=== PATIENT | female | born 1945 | race Asian ===

== ENCOUNTER 2016-12-11 20:50 | Inpatient (IN) | payer OTHER ==
[~2016-12-11] VITALS: Ht 175.3 cm; Wt 64.9 kg
[2016-12-11 20:50] VITALS: BP 173/105
--- NOTE | 2016-12-11 21:01 | NUR ---
BIBA TO ER BED 7
--- NOTE | 2016-12-11 21:07 | NUR ---
71/F BIBA DUE TO SOB SATS IN 80S PER ALS, ALBUTEROL, ATROVENT AND 2LPM NC GIVEN, IMPROVED TO 95% ON 2LPM NC. SON STATES PT WAS SEEN IN URGENT CARE 1 WEEK AGO FOR SORE THROAT, NO RX REPORTED. SOB STARTED 1 HOUR AGO. PT SATS 95% ON 2LPM, 125 SINUS TACH, BP 145/89. HOB ELEVATED, POSITIONED FOR COMFORT, ED MADE AWARE OF PT STATUS Addendum: 12/11/16 at 2114 by WEI HX HYPERTENSION
--- NOTE | 2016-12-11 21:22 | NUR ---
Patient being evaluated by physician at bedside.
[2016-12-11] MEDS ORDERED: NACL 0.9% 2,000 ML IV ONE (21:24)
[2016-12-11 21:58] LABS: BASOPHILS # (AUTO) 0.2 K/uL (0.00-0.22); BASOPHILS % (AUTO) 1.7 % (0.0-2.0); EOSINOPHILS % (AUTO) 0.2 % (0.0-4.0); HEMATOCRIT 40.8 % (36-48); HEMOGLOBIN 13.4 g/dL (12.0-16.0); LYMPHOCYTES # (AUTO) 0.4 K/uL (2.5-16.5); LYMPHOCYTES % (AUTO) 4.3 % (20.5-51.1); MEAN CORPUSCULAR HEMOGLOBIN 29 pg (27-31); MEAN CORPUSCULAR HGB CONC 33 g/dL (33-37); MEAN CORPUSCULAR VOLUME 88 fL (80-94); MONOCYTES # (AUTO) 0.2 K/uL (0.8-1.0); MONOCYTES % (AUTO) 1.8 % (1.7-9.3); NEUTROPHILS # (AUTO) 8.9 K/uL (1.8-7.7); PLATELET COUNT (AUTO) 163 K/uL (140-450); RED BLOOD CELL COUNT(AUTO) 4.61 MIL/uL (4.20-5.40); RED CELL DISTRIBUTION WIDTH 13.5 % (11.6-13.7); WHITE BLOOD COUNT (AUTO) 9.7 K/uL (4.8-10.8)
[2016-12-11 22:03] LABS: BILIRUBIN,URINE NEGATIVE (NEGATIVE); BLOOD, URINE 1+ (NEGATIVE); COLOR,URINE YELLOW (YELLOW); LEUKOCYTE ESTERASE ,URINE NEGATIVE (NEGATIVE); NITRITE, URINE NEGATIVE (NEGATIVE); UGLUCOSE 2+ (NEGATIVE)
[2016-12-11 22:04] LABS: APPEARANCE,URINE CLEAR (CLEAR)
[2016-12-11 22:10] LABS: ANION GAP 14.8 (8-16); CARBON DIOXIDE 24.6 mmol/L (21-32); POTASSIUM 3.4 mmol/L (3.5-5.1)
[2016-12-11] MEDS ORDERED: LEVOFLOXACIN 750 MG/D5W PREMIX 150 ML IV ONE (22:10)
[2016-12-11 22:12] LABS: PROTHROMBIN TIME 11.1 secs (10.8-13.4)
[2016-12-11 22:15] LABS: RBC,URINE 3-10 (FEW) /HPF (0-5); WBC,URINE 0-5 (RARE) /HPF (0-5)
--- NOTE | 2016-12-11 22:15 | NUR ---
PT DESAT TO 50S ON 2LPM NC, PT RESTLESS,HOB ELEVATED, O2 INCREASED TO 6LPM. LUNG SOUNDS COARSE DALIA, SYMMETRICAL EXPANSION. ED MD MADE AWARE. OROSUCTION THICK GREEN SPUTUM. FACE MASK ON 10 LPM, SATS 98%.RT AT BEDSIDE. CXR DONE
[2016-12-11 22:16] LABS: ALBUMIN 3.7 g/dL (3.4-5.0); TOTAL BILIRUBIN 0.6 mg/dL (0.0-1.0)
--- NOTE | 2016-12-11 22:20 | NUR ---
PT PLACED ON BIPAP: R 12 IPAP 14 EPAP 6, 100% FIO2. SATS 96%, 27 HR. DALIA LUNG SOUNDS ARE COARSE, PT APPEARS MORE RELAXED AND COMFORTABLE IVF RUNNING AND ANTIBIOTIC IVPB. FAMILY AT BEDSIDE
--- NOTE | 2016-12-11 22:22 | NUR ---
X-Ray at bedside.
[2016-12-11] MEDS ORDERED: NACL 0.9% 1,500 ML IV ONE (22:25)
[2016-12-11] MEDS ORDERED: PIPERACILLIN/TAZOBACTAM 3.375 GM in DEXTROSE 5% 50 ML IV ONE (22:25)
[2016-12-11] MEDS ORDERED: NACL 0.9% 1,000 ML IV ONE (22:30)
[2016-12-11] MEDS ORDERED: fentaNYL 0.05 MG/ML VIAL IVP ONE (22:35)
[2016-12-11 22:41] VITALS: BP 156/101
[2016-12-11] MEDS ORDERED: fentaNYL 0.05 MG/ML VIAL ONE (22:41)
[2016-12-11] MEDS: NACL 0.9% 1,000 ML IV SCH (22:53)
[2016-12-11] MEDS ORDERED: HYDROcodone/APAP 7.5/325 MG 1 TAB PO PRN (22:55)
[2016-12-11] MEDS ORDERED: ACETAMINOPHEN 325 MG TAB PO PRN (22:55)
[2016-12-11] MEDS ORDERED: ONDANSETRON 4 MG/2 ML VIAL IM/IVP PRN (22:55)
[2016-12-11] MEDS ORDERED: MORPHINE SULFATE 2 MG/ML SYR IVP PRN (22:55)
[2016-12-11] MEDS ORDERED: DOCUSATE SODIUM 100 MG GELCAP PO PRN (22:55)
--- NOTE | 2016-12-11 23:02 | NUR ---
BIPAP 14/6 RR-12 FIO2-100% INCREASED IPAP TO BLOW OFF CO2. DR AMAYA IS AWARE
[2016-12-11] MEDS ORDERED: PIPERACILLIN/TAZOBACTAM 3.375 GM VIAL IV ONE (23:15)
--- NOTE | 2016-12-11 23:30 | NUR ---
Patient will be admitted to care of [facility]. Admited to ICU. Will go to room 5. Belongings list completed. Report to YAN KINGSLEY. PT TRANSFERRED VIA [facility]
--- NOTE | 2016-12-11 23:35 | NUR ---
RECEIVED REPORT FROM TEETEE JENKINS. PT GCS 15. ALERT BUT DROWSY. BILATERAL PERRLA NOTED. PT DENIES PAIN OR DISCOMFORT. LUNGS SOUND COARSE THROUGHOUT. EQUAL BREATH NOTED. BIPAP ON. RT AT BEDSIDE. ST ON MONITOR. SKIN INTACT. BILATERAL SHOULDER REDNESS NOTED. PER SON, IT IS THE RESULT OF A TYPICAL JAPANESE MEDICINAL PROCEDURE. L AC 20 GAUGE IV NOTED. INTACT AND PATENT. R HAND 22 GAUGE IV NOTED. INTACT AND PATENT. BOWEL SOUNDS PRESENT X 4 QUADRANT. ABDOMEN SOFT, NONTENDER. ROSEN CATHETER NOTED. DRAINING CLEAR, PALE YELLOW URINE. GENERALIZED MILD WEAKNESS NOTED. SAFETY PRECAUTION MAINTAINED. BED AT LOWEST SETTING. CALL LIGHT WITHIN REACH. WILL CONTINUE TO MONITOR FOR CHANGES.
[2016-12-11 23:37] LABS: CHOL/HDL RATIO 3.6 (1-4.5); FREE T4 (FREE THYROXINE) 0.85 ng/dL (0.76-1.46); MAGNESIUM 1.9 mg/dL (1.8-2.4); PHOSPHORUS 3.3 mg/dL (2.5-4.9); THYROID STIMULATING HORMONE 1.01 uIU/mL (0.34-3.74)
--- NOTE | 2016-12-11 23:41 | NUR ---
PATIENT TRANSFERRED TO ICU-5 ON 100% NON-REBREATHER, THEN PLACED BACK OB BIPAP 14/6 FIO2 100% RATE 12
[2016-12-12] VITALS (15 sets, daily range): BP systolic 111–144; BP diastolic 59–89
--- NOTE | 2016-12-12 | NUR ---
DR. MICHELLE AT BEDSIDE TO SEE PT. WILL F/U WITH NEW ORDERS.
[2016-12-12] MEDS ORDERED: LORazepam 2 MG/ML VIAL IVP PRN (00:25)
--- NOTE | 2016-12-12 00:30 | NUR ---
PT RESTING. EASILY AWAKEN. SON AT BEDSIDE. DENIES SOB, DENIES PAIN OR DISCOMFORT. WILL CONTINUE TO MONITOR.
[2016-12-12] MEDS ORDERED: LIDOCAINE 1% 500 MG/50 ML VIAL INJ SCH (00:35)
[2016-12-12] MEDS: PIPERACILLIN/TAZOBACTAM 3.375 GM in DEXTROSE 5% 50 ML IV SCH ×2 (00:35→05:54)
--- NOTE | 2016-12-12 00:50 | NUR ---
RT AT BEDSIDE FOR REPEAT ABG.
--- NOTE | 2016-12-12 01:00 | NUR ---
CONSENT OBTAINED FOR CENTRAL LINE BY MD WITH SON PRABHU. RN TO WITNESS. ULTRASOUND PRESENT. TIME OUT DONE.
--- NOTE | 2016-12-12 02:00 | NUR ---
R IJ TRIPLE LUMEN CENTRAL CATHETER PLACED. INTACT AND PATENT. PT TOLERATED WELL. WILL CONTINUE TO MONITOR.
--- NOTE | 2016-12-12 03:00 | NUR ---
PT RESTING IN BED. CONTINUE BIPAP ORDERED. TOLERATED WELL. NO S/SX OF ACUTE DISTRESS NOTED.
--- NOTE | 2016-12-12 04:00 | NUR ---
PT RESTING IN BED. AWAKEN EASILY TO NAME. PT ASKED FOR BLANKET. BLANKET PROVIDED, REPOSITIONED PT ACCORDINLY. CONTINUE BIPAP ORDERED. TOLERATED WELL. NO S/SX OF ACUTE DISTRESS NOTED.
--- NOTE | 2016-12-12 05:00 | NUR ---
PT RESTING IN BED. CONTINUE BIPAP ORDERED. TOLERATED WELL. NO S/SX OF ACUTE DISTRESS NOTED.
[2016-12-12] MEDS ORDERED: PIPERACILLIN/TAZOBACTAM 3.375 GM VIAL IV ONE (05:24)
--- NOTE | 2016-12-12 06:04 | NUR ---
PT RESTING IN BED. CONTINUE BIPAP ORDERED. TOLERATED WELL. NO S/SX OF ACUTE DISTRESS NOTED. DECLINE Q2H TURN AT THIS TIME.
[2016-12-12 06:05] LABS: HEMOGLOBIN 12.7 g/dL (12.0-16.0); MEAN CORPUSCULAR HEMOGLOBIN 30 pg (27-31); MEAN CORPUSCULAR HGB CONC 33 g/dL (33-37); MEAN CORPUSCULAR VOLUME 89 fL (80-94); PLATELET COUNT (AUTO) 146 K/uL (140-450); RED CELL DISTRIBUTION WIDTH 13.5 % (11.6-13.7); WHITE BLOOD COUNT (AUTO) 9.7 K/uL (4.8-10.8)
[2016-12-12 06:24] LABS: ANION GAP 11.2 (8-16); CARBON DIOXIDE 25.9 mmol/L (21-32); CREATININE 0.7 mg/dL (0.6-1.3); POTASSIUM 4.1 mmol/L (3.5-5.1)
--- NOTE | 2016-12-12 06:50 | NUR ---
REC'D PT ON SILVIA V60 BIPAP SETTINGS 14\6 RR 12 FIO2 35% ALARMS ON AND FUNCTIONING PROPERLY, AMBU BAG AT SIDE OF BIPAP AND BIPAP IS PLUGGED INTO RED OUTLET, B\S ARE COARSE BILATERALLY, PT IS WEARING MED FACE MASK WITH PROTETIC GEL IN PLACE AND SKIN INTEGRITY IS INTACT PT IS SLEEPING WITH NO SIGNS OF DISTRESS NOTED AT THIS TIME
[2016-12-12 06:57] LABS: LYMPHOCYTES % (MANUAL) 20 % (20-46); MONOCYTES % (MANUAL) 10 % (5-12)
[2016-12-12 06:58] LABS: EOSINOPHILS % (MANUAL) 2 % (0-4)
--- NOTE | 2016-12-12 07:40 | NUR ---
RECEIVED A REPORT FROM TEETEE HEREDIA. PT IS ALERT AND ABLE TO MAKE NEEDS KNOWN. VERBALLY RESPONSIVE WITH ANDORRAN SPEAKING. DENIES ANY PAIN AND NO S/SX OF ACUTE DISTRESS. ON BIPAP AND SETTING FiO2 35%, I/E 24/08. IV SITE ON LT AC #20G, RT HAND #22G. RT IJ [id number]. PATENT AND INTACT. ROSEN CATHETER DRAINING SLIGHTLY BLOODY URINE. ON SCD IN BED. SKIN INTACT AND WARM TO TOUCH. SAFETY PRECAUTION. BED IN LOW POSITION. CALL LIGHT WITHIN REACH. WILL CONTINUE TO MONITOR.
--- NOTE | 2016-12-12 07:44 | NUR ---
ENDORSED CARE TO JUAN AND TEETEE HARPER. PT IS STABLE.
--- NOTE | 2016-12-12 07:50 | NUR ---
DR. KRAMER'S GROUP IN TO SEE PT. WILL FOLLOW UP ON ORDERS.
--- NOTE | 2016-12-12 08:00 | NUR ---
RT AT BEDSIDE AND CHANGED BIPAP TO O2 3L/M VIA N/C. PT TOLERATED WELL AND NO S/SX OF RESPIRATORY DISTRESS AT THIS TIME. PROVIDED BREAKFAST TRAY AND PT FED HERSELF. DR. KRAMER IN TO SEE PT. WILL FOLLOW UP ON ORDERS.
--- NOTE | 2016-12-12 08:08 | NUR ---
PT PLACED ON 3LNC TO EAT O2 SAT 98% PT IS AWAKE WITH NO SIGNS OF DISTRESS NOTED AT THIS TIME, RN MEREDITH High NOTIFIED OF CHANGES MADE
[2016-12-12] MEDS ORDERED: ALBUTEROL SULFATE/IPRATROPIU 3 ML SOL IH PRN (08:35)
--- NOTE | 2016-12-12 08:43 | NUR ---
PATIENT HAS BEEN SCREENED AND CATEGORIZED HIGH NUTRITION RISK. PATIENT WILL BE SEEN WITHIN 1-2 DAYS OF ADMISSION. 12/12/16-12/13/[address]
--- NOTE | 2016-12-12 08:50 | NUR ---
INFORMED DR. STALLWORTH ABOUT HEMATURIA. PT'S SON AT BEDSIDE.
[2016-12-12] MEDS: NACL 0.9% 1,000 ML IV SCH ×3 (08:53→18:53)
--- NOTE | 2016-12-12 08:55 | NUR ---
INCENTIVE SPIROMETER GIVEN TO PT, PROVIDED EDUCATION ON ITS USE TO PT AND PT'S SON. PT TOLERATING WELL, WILL CONTINUE TO MONITOR.
--- NOTE | 2016-12-12 08:55 | NUR ---
DR. STALLWORTH IN TO SEE PT AND SPEAKING WITH PT'S SON REGARDING PT'S CONDITION.
[2016-12-12] MEDS ORDERED: guaiFENesin/CODEINE 100/10MG 5 ML UDC PO PRN (09:05)
[2016-12-12] MEDS: CALCIUM CARBONATE 500 MG TAB PO SCH (09:12)
[2016-12-12] MEDS: LACTOBACILLUS RHAMNOSUS GG 1 EACH CAP PO SCH (09:12)
--- NOTE | 2016-12-12 09:13 | NUR ---
PT'S SON LEFT AND DAUGHTER IN LAW AT BESIDE AT THIS TIME. PT TOLERATED MEDICATIONS WELL.
--- NOTE | 2016-12-12 09:38 | NUR ---
DR. MATTHEW IN TO SEE PT. WILL FOLLOW UP ON ORDERS.
--- NOTE | 2016-12-12 10:46 | NUR ---
12/12/16 RD INITIAL ASSESSMENT COMPLETED PLEASE REFER TO NUTRITION ASSESSMENT UNDER CARE ACTIVITY FOR ESTIMATED NUTRITIONAL NEEDS. 1. CONTINUE REGULAR DIET 2. RD TO FOLLOW-UP 2-3 DAYS, HIGH RISK RADHA JIMENEZ RD
--- NOTE | 2016-12-12 11:00 | NUR ---
PT IS ON THE EXAM OF ULTRA SOUND AT BEDSIDE AND PT IS TOLERATING ON THAT.
--- NOTE | 2016-12-12 11:26 | NUR ---
DR. DAVIDSON IN TO SEE PT. WILL FOLLOW UP ON ORDERS.
[2016-12-12] MEDS: ALBUTEROL SULFATE/IPRATROPIU 3 ML SOL IH SCH ×2 (12:00→19:55)
--- NOTE | 2016-12-12 12:00 | NUR ---
NO LONGER HEMATURIA NOTED AND ULTRA SOUNDS RESULT CAME NEGATIVE.
[2016-12-12] MEDS: PIPER/TAZO 3.375GM/D5W PREMIX 50 ML IV SCH ×2 (12:10→17:30)
--- NOTE | 2016-12-12 13:00 | NUR ---
PT STABLE AND TOLERATING WITH O2 3L/M VIA N/C. NO S/SX OF RESPIRATORY DISTRESS. WILL CONTINUE TO MONITOR.
--- NOTE | 2016-12-12 15:36 | NUR ---
P STABLE AND ASLEEP AT THIS TIME. WILL CONTINUE TO MONITOR.
--- NOTE | 2016-12-12 17:25 | NUR ---
DR. OLEA IN TO SEE PT. WILL FOLLOW UP ON ORDERS
--- NOTE | 2016-12-12 17:56 | NUR ---
REMOVED PERIPHERAL IV LINE ON LT AC AND RT HAND. CANULA INTACT AND APPLIED 2X2 GAUZE. NO BLEEDING ON THE SITES NOTED. WILL CONTINUE TO MONITOR
--- NOTE | 2016-12-12 18:29 | NUR ---
PT STABLE. WILL CONTINUE TO MONITOR
--- NOTE | 2016-12-12 19:17 | NUR ---
REPORT GIVEN TO MONICA ESPINOSA RN. PT STABLE
--- NOTE | 2016-12-12 19:18 | NUR ---
RECEIVED A REPORT FROM TEETEE EMERSON AND TEETEE HARPER AT BEDSIDE. PT IS A/OX4, ABLE TO FOLLOW COMMANDS AND MAKE NEEDS KNOWN. SON AT BEDSIDE HELPS WITH TRANSLATION, DENIES PAIN, VSS, NO S/S OF SOB/DISTRESS NOTED, CRACKLED LUNG SOUNDS, COUGHING WITH YELLOW SPUTUM NOTED, ON O2 AT 3L VIA NC, DENIES CHEST PAIN, SR ON MANAGER ENGINE, SOFT ABDOMEN WITH ACTIVE BOWEL SOUNDS, ROSEN CATHETER IN PLACE WITH CLEAR YELLOW URINE, ABLE TO MOVE ALL EXTREMITIES, SCD PLACED ON BLE FOR PREVENTION. SKIN IS INTACT, WARM AND DRY TO TOUCH. CENTRAL LINE TO RIJ WITH TLC, PATENT, RUNNING WITH NS AT 100ML/HR, SAFETY PRECAUTION IN PLACE, CALL LIGHT WITHIN REACH, WILL CONTINUE TO MONITOR.
[2016-12-12] MEDS: LEVOFLOXACIN 750 MG/D5W PREMIX 150 ML IV SCH (20:37)
--- NOTE | 2016-12-12 22:00 | NUR ---
NO CHANGE OF CONDITION AT THIS TIME, VSS.
[2016-12-13] VITALS (8 sets, daily range): BP systolic 90–122; BP diastolic 53–70
--- NOTE | 2016-12-13 | NUR ---
PT IS RESTING IN BED, NO S/S OF DISTRESS, VSS, POSITION CHANGED FOR OFF LOAD PRESSURE.
[2016-12-13] MEDS: PIPER/TAZO 3.375GM/D5W PREMIX 50 ML IV SCH ×4 (00:19→17:20)
[2016-12-13] MEDS: NACL 0.9% 1,000 ML IV SCH ×2 (00:20→11:16)
--- NOTE | 2016-12-13 04:00 | NUR ---
NO CHANGE OF CONDITION AT THIS TIME, VSS, AM CARE PROVIDED, ORAL CARE PROVIDED.
[2016-12-13 05:48] LABS: BASOPHILS # (AUTO) 0.2 K/uL (0.00-0.22); BASOPHILS % (AUTO) 2.4 % (0.0-2.0); EOSINOPHILS # (AUTO) 0.1 K/uL (0-0.4); EOSINOPHILS % (AUTO) 0.6 % (0.0-4.0); HEMATOCRIT 35.6 % (36-48); HEMOGLOBIN 11.6 g/dL (12.0-16.0); LYMPHOCYTES # (AUTO) 1.3 K/uL (2.5-16.5); LYMPHOCYTES % (AUTO) 15.7 % (20.5-51.1); MEAN CORPUSCULAR HEMOGLOBIN 29 pg (27-31); MEAN CORPUSCULAR HGB CONC 33 g/dL (33-37); MEAN CORPUSCULAR VOLUME 89 fL (80-94); MONOCYTES # (AUTO) 0.4 K/uL (0.8-1.0); NEUTROPHILS # (AUTO) 6.4 K/uL (1.8-7.7); NEUTROPHILS % (AUTO) 76.3 % (42.2-75.2); PLATELET COUNT (AUTO) 130 K/uL (140-450); RED BLOOD CELL COUNT(AUTO) 3.99 MIL/uL (4.20-5.40); RED CELL DISTRIBUTION WIDTH 13.8 % (11.6-13.7); WHITE BLOOD COUNT (AUTO) 8.4 K/uL (4.8-10.8)
[2016-12-13 06:11] LABS: ANION GAP 6.6 (8-16); CARBON DIOXIDE 28.8 mmol/L (21-32); CREATININE 0.7 mg/dL (0.6-1.3); POTASSIUM 3.4 mmol/L (3.5-5.1)
[2016-12-13] MEDS: ALBUTEROL SULFATE/IPRATROPIU 3 ML SOL IH SCH ×3 (06:19→18:00)
[2016-12-13 06:20] LABS: T4 (THYROXINE) 5.7 ug/dL (4.5-12.0)
--- NOTE | 2016-12-13 07:15 | NUR ---
REPORT GIVEN TO TEETEE EMERSON. PT IS IN STABLE CONDITION AT THIS TIME.
--- NOTE | 2016-12-13 07:20 | NUR ---
RECEIVED A REPORT FROM MONICA ESPINOSA RN. PT IS ALERT AND ORIENTED X4. CANTONESE SPEAKING. DENIES ANY PAIN AND NO S/SX OF RESPIRATORY DISTRESS NOTED. SKIN WARM TO TOUCH. IV SITE ON RT IJ [id number]. ROSEN CATHETER DRAINING CLEAR YELLOW URINE. ABDOMEN SOFT AND NONTENDER. SCD IN PLACE. ON O2 3L/M VIA N/C. SAFETY PRECAUTION. BED IN LOW POSITION, CALL LIGHT WITHIN REACH. WILL CONTINUE TO MONITOR.
--- NOTE | 2016-12-13 07:53 | NUR ---
DR. KRAMER'S GROUP IN TO SEE PT. WILL FOLLOW UP ON ORDERS.
--- NOTE | 2016-12-13 07:54 | NUR ---
DR. STALLWORTH AWARE OF LOW POTASSIUM 3.4. WILL FOLLOW UP ON ORDERS
[2016-12-13] MEDS: CALCIUM CARBONATE 500 MG TAB PO SCH (08:13)
[2016-12-13] MEDS: LACTOBACILLUS RHAMNOSUS GG 1 EACH CAP PO SCH (08:13)
--- NOTE | 2016-12-13 08:20 | NUR ---
MEDICATION GIVEN ORDERED. TOLERATED WELL. WILL CONTINUE TO MONITOR.
--- NOTE | 2016-12-13 08:48 | NUR ---
CALLED TELEMETRY TO GIVE REPORT. AWAITING CALL BACK.
[2016-12-13] MEDS ORDERED: POTASSIUM CHLORIDE 10 MEQ TABER PO SCH (09:30)
--- NOTE | 2016-12-13 09:33 | NUR ---
REPORT GIVEN TO TEETEE DURANT. PT IS STABLE. SON AT BEDSIDE.
--- NOTE | 2016-12-13 09:55 | NUR ---
PT TRANSFERRED ON MONITOR AND 2 L O2 VIA GURNEY.
[2016-12-13] MEDS ORDERED: DOCUSATE SODIUM 100 MG GELCAP PO SCH (10:12)
--- NOTE | 2016-12-13 10:14 | NUR ---
RECEIVED PT FROM ICU. PT ALERT ORIENTEDX4. NO SOB NOTED ON O2 AT 3LPM NC. DENIES ANY PAIN OR DISCOMFORT AT THIS TIME. SON AT BEDSIDE. PT AMBULATORY. POSITIVE BOWEL SOUNDS NOTED ON FOUR QUADRANTS. CENTRAL LINE [address] ROSEN CATHETER IN PLACE. DRAINING CLEAR YELLOW URINE. SAFETY PRECAUTION IN PLACE. CALL LIGHT WITHIN REACH.
--- NOTE | 2016-12-13 10:38 | NUR ---
DR. DAVIDSON IN TO SEE PT. WILL FOLLOW UP ON ORDERS.
--- NOTE | 2016-12-13 13:00 | NUR ---
ROSEN CATHETER REMOVED PER MD ORDER. UT DENIES ANY PAIN OR DISCOMFORT AT THIS TIME.
--- NOTE | 2016-12-13 14:08 | NUR ---
PT AWAKE RIGHT NOW. NO SOB NOTED. DENIES ANY PAIN OR DISCOMFORT AT THIS TIME. FAMILY CAME TO SEE PT AND AT BEDSIDE.
--- NOTE | 2016-12-13 15:04 | NUR ---
DAMIÁN PELLETIER WALKING PT ALONG THE HALLWAY. PT STABLE, STEADY. WALKING TOLERATED WELL.
--- NOTE | 2016-12-13 15:28 | NUR ---
SOILING OF DRIED OLD BLOOD NOTED ON CENTRAL LINE DRESSING. CENTRAL LINE DRESSING CHANGED, STERILE TECHNIQUE APPLIED. GOOD SKIN CARE PROVIDED. KEPT AREA CLEAN, AND DRY.
--- NOTE | 2016-12-13 19:23 | NUR ---
PT KEPT CLEAN, DRY, AND COMFORTABLE, NEEDS ATTENDED. NO SOB NOTED. DENIES ANY PAIN OR DISCOMFORT AT THIS TIME. PT AMBULATORY GOING TO THE BATHROOM. PT ON STABLE CONDITION. ENDORSED TO NEXT SHIFT FOR CONTINUITY OF CARE.
--- NOTE | 2016-12-13 19:30 | NUR ---
RECEIVED FROM AM RN IN BED AWAKE AND ALERT. NO SOB. TELEMETRY MONITORING. CALL LIGHT WITH IN REACH. SIGNALED TO PT. TO USE IF SHE NEEDS HELP. NO RESTLESSNESS AT THIS TIME. NO BLEEDING FROM CENTRAL LINE SITE. NEEDS WILL BE ANTICIPATED AND WILL BE MET.
[2016-12-13] MEDS: LEVOFLOXACIN 750 MG/D5W PREMIX 150 ML IV SCH (20:48)
[2016-12-13] MEDS: DOCUSATE SODIUM 100 MG GELCAP PO SCH (20:48)
--- NOTE | 2016-12-13 21:39 | NUR ---
SLEEPING AT THIS TIME. NO SOB. CHECKED PT. IF WET WITH URINE. DRY AND CLEAN.
--- NOTE | 2016-12-13 22:10 | NUR ---
CALLED SON PRABHU HAAS AND MADE HIM TALK WITH MOTHER TO USE CALL LIGHT FOR ANY HELP SHE NEEDS AND SPECIALLY IF SHE FEELS LIKE URINATING SO SHE WILL NOT BE WET IN BED. PT. ABLE TO TALK WITH SON THRU PHONE IN DIALECT . APPARENTLY PT. DO NOT KNOW ANY ST HELENIAN OR [place] NATIONAL LANGUAGE PER SON. TRIED USING CYRACOM WITH PT. EARLIER BUT PT. ADAMANTLY SIGNALED ME THAT SHE DO NOT WANT TO USE CYRACOM . CLEANED PT. AT THIS TIME RT WET BED OF URINE. PT. ENCOURAGED TO GO BACK TO SLEEP . KEPT CLEAN AND DRY.
--- NOTE | 2016-12-13 23:26 | NUR ---
SLEEPING WELL AT THIS TIME.
[2016-12-14] MEDS: PIPER/TAZO 3.375GM/D5W PREMIX 50 ML IV SCH ×5 (00:20→23:56)
[2016-12-14] MEDS: NACL 0.9% 1,000 ML IV SCH ×2 (00:23→10:53)
[2016-12-14 00:25] VITALS: BP 133/71
--- NOTE | 2016-12-14 02:00 | NUR ---
SLEEPING. NO RESTLESSNESS.
--- NOTE | 2016-12-14 04:00 | NUR ---
PT. CLEANED UP BY INSTRUCTOR PHYSICAL RT USED BEDPAN TO URINATE. NO NOTED RESTLESSNESS. NO SOB. TELEMETRY MONITORING.
[2016-12-14 04:08] VITALS: BP 130/68
--- NOTE | 2016-12-14 05:00 | NUR ---
AWAKE AT THIS TIME. LAB. RECORDS AND TAPE RECORDINGS ENGINEER IN TO GET BLOOD SAMPLES . NO RESTLESSNESS NOTED. TELEMETRY MONITORING. NO SOB NOTED.
[2016-12-14 06:06] LABS: BASOPHILS # (AUTO) 0.1 K/uL (0.00-0.22); BASOPHILS % (AUTO) 0.8 % (0.0-2.0); EOSINOPHILS # (AUTO) 0.1 K/uL (0-0.4); EOSINOPHILS % (AUTO) 0.9 % (0.0-4.0); HEMATOCRIT 36.3 % (36-48); MEAN CORPUSCULAR HEMOGLOBIN 30 pg (27-31); MEAN CORPUSCULAR HGB CONC 33 g/dL (33-37); MEAN CORPUSCULAR VOLUME 90 fL (80-94); MONOCYTES # (AUTO) 0.6 K/uL (0.8-1.0); MONOCYTES % (AUTO) 5.8 % (1.7-9.3); NEUTROPHILS # (AUTO) 6.7 K/uL (1.8-7.7); NEUTROPHILS % (AUTO) 71.5 % (42.2-75.2); PLATELET COUNT (AUTO) 137 K/uL (140-450); RED BLOOD CELL COUNT(AUTO) 4.01 MIL/uL (4.20-5.40); RED CELL DISTRIBUTION WIDTH 13.4 % (11.6-13.7); WHITE BLOOD COUNT (AUTO) 9.5 K/uL (4.8-10.8)
[2016-12-14 06:21] LABS: ANION GAP 11.5 (8-16); CREATININE 0.7 mg/dL (0.6-1.3); POTASSIUM 3.5 mmol/L (3.5-5.1)
[2016-12-14] MEDS: ALBUTEROL SULFATE/IPRATROPIU 3 ML SOL IH SCH ×3 (07:05→18:00)
--- NOTE | 2016-12-14 07:05 | NUR ---
SILVIA RESPIRONICS V60 BIPAP AT BEDSIDE
--- NOTE | 2016-12-14 07:38 | NUR ---
ENDORSED TO THE NEXT RN FOR CONTINUITY OF CARE. AWAKE AND ALERT. GOOD AFFECT. TELEMETRY MONITORING. USES HAND SIGNAL TO POINT AT WHAT SHE WANTS DONE.
--- NOTE | 2016-12-14 07:39 | NUR ---
RECEIVED REPORT FROM PRINTING MANAGER NURSE AT BEDSIDE FOR CONTINUITY OF CARE. PT IS AWAKE AND ORIENTED. INTRODUCED SELF AND UPDATED BOARD. A/O X4 AND SPEAKS CANTONESE. CENTRAL LINE DRESSING IS DRY AND INTACT ON RIJ. RR 18 WITH O2 SAT AT 95% O2 DELIVERY VIA NC 3L/MIN. NO SOB NOTED. PRODUCTIVE COUGH PRESENT WITH SMALL SPUTUM NOTED. SKIN IS WARM AND DRY AND INTACT WITH DRYNESS OF SOLES OF FEET. PT HAS NO COMPLAINTS AT THIS TIME WILL CONTINUE TO MONITOR.
[2016-12-14 07:56] VITALS: BP 142/76
[2016-12-14] MEDS: DOCUSATE SODIUM 100 MG GELCAP PO SCH ×2 (08:06→20:48)
[2016-12-14] MEDS: LACTOBACILLUS RHAMNOSUS GG 1 EACH CAP PO SCH (08:06)
[2016-12-14] MEDS: CALCIUM CARBONATE 500 MG TAB PO SCH (08:06)
--- NOTE | 2016-12-14 09:30 | NUR ---
CHECKED ON PT IN ROOM. SON IS AT BEDSIDE. ADMINISTERED SCHEDULED MEDS. EXPLAINED MEDS AND SIDE EFFECTS TO PT AND PT'S SON. PT'S SON USED C PROGRAMMER. BOTH VERBALIZED UNDERSTANDING AND REINFORCED USE OF CALL LIGHT.
--- NOTE | 2016-12-14 10:00 | NUR ---
CHECKED ON PT IN ROOM. SON IS AT BEDSIDE. PT AMBULATED TO USE RESTROOM WITH STANDBY ASSIST. CHANGED GOWN AND SOCKS ON PT AND REPOSITIONED IN BED. REINFORCED PT TO USE INCENTIVE SPIROMETER. PT AND SON VERBALIZED UNDERSTANDING.
[2016-12-14 12:00] VITALS: BP 138/84
--- NOTE | 2016-12-14 12:51 | NUR ---
SILVIA RESPIRONICS V60 BIPAP REMAINS AT BEDSIDE
--- NOTE | 2016-12-14 15:45 | NUR ---
PT GOT UP TO USE BATHROOM. AMBULATED WITH STEADY GAIT. ASSISTED BACK TO BED. PT TAKEN OFF NC. CHECKED O2 SAT ON ROOM AIR. 94%. PT CONTINUES TO HAVE PRODUCTIVE COUGH WITH SCANT AMOUNT OF SPUTUM NOTED. PT RESTING IN BED. NO COMPLAINTS AT THIS TIME WILL CONTINUE TO MONITOR.
[2016-12-14 16:00] VITALS: BP 135/73
--- NOTE | 2016-12-14 19:20 | NUR ---
ENDORSED PT TO SET UP MECHANIC HEADING MACHINES NURSE AT BEDSIDE FOR CONTINUITY OF CARE. PT IS AWAKE AND ORIENTED. USED NON-VERBAL COMMUNICATION TO TELL NURSES THAT SHE WANTED TO APPLY SCDS ON. PT IN STABLE CONDITION.
--- NOTE | 2016-12-14 19:21 | NUR ---
RECEIVED PATIENT REPORT AT BEDSIDE FROM MORNING NURSE. PATIENT IS AWAKE, ALERT, AND ORIENTED. NO SIGNS AND SYMPTOMS OF DISTRESS NOTED. PATIENT'S SON IS AT BEDSIDE. CENTRAL LINE NOTED ON RIJ, DRESSING IS DRY AND INTACT. IVF IS INFUSING WELL. PATIENT IS ON ROOM AIR. NO SOB NOTED. O2 SAT IS AT 94%. BED IN LOWEST POSITION, SEMI BRUNER'S WITH SIDE RAILS UP AND CALL LIGHT WITHIN REACH. WILL CONTINUE TO MONITOR.
[2016-12-14 20:00] VITALS: BP 145/77
[2016-12-14] MEDS: LEVOFLOXACIN 750 MG/D5W PREMIX 150 ML IV SCH (20:48)
--- NOTE | 2016-12-14 21:00 | NUR ---
MEDICATION INDICATIONS AND SIDE EFFECTS EXPLAINED TO PATIENT AND PATIENT'S SON. SON TRANSLATED TO CANTONESE. PATIENT VERBALIZED UNDERSTANDING. MEDICATION ADMINISTERED.
[2016-12-15] VITALS: BP 144/81
--- NOTE | 2016-12-15 01:29 | NUR ---
CHECKED ON PATIENT, PATIENT IS ASLEEP. NO SIGNS AND SYMPTOMS OF DISTRESS NOTED. BED IN LOWEST POSITION, SIDE RAILS UP AND CALL LIGHT WITHIN REACH.
[2016-12-15 03:45] VITALS: BP 132/74
[2016-12-15] MEDS: PIPER/TAZO 3.375GM/D5W PREMIX 50 ML IV SCH (05:21)
[2016-12-15] MEDS: ALBUTEROL SULFATE/IPRATROPIU 3 ML SOL IH SCH (06:55)
--- NOTE | 2016-12-15 07:36 | NUR ---
PATIENT REPORT GIVEN TO MORNING NURSE. PATIENT IN STABLE CONDITION
--- NOTE | 2016-12-15 07:37 | NUR ---
RECEIVED REPORT FROM SHEARING SUPERVISOR NURSE AT BEDSIDE FOR CONTINUITY OF CARE. PT IS AWAKE AND ORIENTED. INTRODUCED SELF AND UPDATED BOARD. NO SOB OR RESPIRATORY DISTRESS NOTED. REINFORCED TEACHING TO PT FOR USE OF INCENTIVE SPIROMETER. DEMONSTRATED TEACHING BY USING INCENTIVE SPIROMETER. REPOSITIONED PT IN BED. PT HAS NO COMPLAINTS AT THIS TIME. WILL CONTINUE TO MONITOR.
[2016-12-15 08:00] VITALS: BP 131/69
[2016-12-15] MEDS ORDERED: LEVO750T2 PO (08:40)
[2016-12-15] MEDS ORDERED: LACT10CA1 PO (08:41)
[2016-12-15] MEDS ORDERED: ROB PO (08:54)
[2016-12-15] MEDS: DOCUSATE SODIUM 100 MG GELCAP PO SCH (09:35)
[2016-12-15] MEDS: LACTOBACILLUS RHAMNOSUS GG 1 EACH CAP PO SCH (09:35)
[2016-12-15] MEDS: CALCIUM CARBONATE 500 MG TAB PO SCH (09:35)
--- NOTE | 2016-12-15 09:50 | NUR ---
12/15/16 RD FOLLOW-UP ASSESSMENT COMPLETED PLEASE REFER TO NUTRITION ASSESSMENT UNDER CARE ACTIVITY FOR ESTIMATED NUTRITIONAL NEEDS. 1. CONTINUE 60G CONSISTENT CARBOHYDRATE DIET 2. RD TO FOLLOW-UP 3-5 DAYS, MODERATE RISK RADHA JIMENEZ RD
[2016-12-15] MEDS: NACL 0.9% 1,000 ML IV SCH (10:53)
--- NOTE | 2016-12-15 11:11 | NUR ---
CHECKED ON PT IN ROOM. PT RESTING COMFORTABLY IN BED. IV OF NS STILL INFUSING AT 10ML/HR ON CENTRAL LINE RIJ.
[2016-12-15] MEDS ORDERED: INFLUENZA VIRUS VACCINE QUAD 0.5 ML SYR IMVAC SCH (12:10)
[2016-12-15] MEDS ORDERED: INFLUENZA VIRUS VACCINE QUAD 0.5 ML SYR IMVAC ONE (12:22)
--- NOTE | 2016-12-15 12:45 | NUR ---
PER PT'S SON. PT HAS NOT BEEN GIVEN THE FLU VACCINE AND CAN TAKE THIS SEASON'S FLU VACCINE. ADMINISTERED FLU VACCINE TO PT AND PROVIDED TEACHING AND POTENTIAL SIDE EFFECTS TO PT AND SON. VERBALIZED UNDERSTANDING. NO REACTIONS NOTED. GAVE PT VACCINE CARD FOR FLU SHOT.
--- NOTE | 2016-12-15 13:05 | NUR ---
PT D/C'D TO GO HOME. DISCHARGE INSTRUCTIONS GIVEN AND FORM SIGNED BY SON. AFTERCARE PROVIDED AND EXPLAINED TO SON. COPIES OF LABS AND EKG PROVIDED. PRESCRIPTION GIVEN AND TEACHING OF SIDE EFFECTS AND WHEN TO REPORT TO ED WITH ABNORMAL S/SX WERE PROVIDED. SON VERBALIZED UNDERSTANDING. CENTRAL LINE FROM [facility] D/C'D. SUTURES REMOVED AND CENTRAL LINE CATHETER TIP INTACT. DRESSING APPLIED AND PRESSURE HELD AT SITE. NO BLEEDING NOTED. TELE MONITOR AND ID BANDS REMOVED . PT CHANGED IN OWN PERSONAL CLOTHES. PT LEFT WITH ALL PERSONAL BELONGINGS. LEFT UNIT VIA WHEELCHAIR ACCOMPANIED BY RN. PT LEFT IN STABLE CONDITION TO GO HOME.
== END 2016-12-15 13:05 | disposition home or self-care (01) | DRG 871 ==
LOC: MED 20:50 → MIC 22:58 → MTU 12-13 09:55
PROVIDERS: ADMIT Family Medicine Sports Medicine; ATTEND Family Medicine Sports Medicine
PROC: 5A09457 Assistance with Respiratory Ventilation, 24-96 Consecutive Hours, Continuous Positive Airway Pressure (ICD-10-PCS; principal; 2016-12-11)
PROC: 02HV33Z Insertion of Infusion Device into Superior Vena Cava, Percutaneous Approach (ICD-10-PCS; 2016-12-12)
PROC: 3E0234Z Introduction of Serum, Toxoid and Vaccine into Muscle, Percutaneous Approach (ICD-10-PCS; 2016-12-15)
DX: A41.9 Sepsis, unspecified organism (principal); J69.0 Pneumonitis due to inhalation of food and vomit; N17.0 Acute kidney failure with tubular necrosis; J96.21 Acute and chronic respiratory failure with hypoxia; D68.59 Other primary thrombophilia; E83.51 Hypocalcemia; J96.22 Acute and chronic respiratory failure with hypercapnia; I10 Essential (primary) hypertension; E78.5 Hyperlipidemia, unspecified; Z23 Encounter for immunization; R31.9 Hematuria, unspecified; E87.6 Hypokalemia; E11.9 Type 2 diabetes mellitus without complications
CPT/HCPCS: 36415; 36600; 51702; 71010; 76770; 80048; 80053; 81001; 82803; 83036; 83605; 83690; 83735; 83880; 84100; 84436; 84439; 84443; 84479; 84484; 85025; 85610; 85730; 87040; 87070; 87081; 87086; 87205; 89220; 90658; 93005; 94640; 94660; 96361; 96374; 99291; J1642; J1956; J2060; J2543; J3010; J7030; J7060; J7620; Q0092